=== PATIENT | male | born 1950 | race Caucasian/White ===

== ENCOUNTER 2018-12-18 06:18 | Day surgery (SDC) | payer MEDICARE, OTHER ==
[2018-12-11 10:23] LABS: ABSOLUTE EOSINOPHILS # (AUTO) 0.3 10^3/uL (0.0-0.6); ABSOLUTE LYMPHOCYTES (AUTO) 2.5 10^3/uL (0.5-4.7); ABSOLUTE MONOCYTES (AUTO) 0.6 10^3/uL (0.1-1.4); ABSOLUTE NEUT (AUTO) 3.6 10^3/uL (1.7-8.2); BASOPHILS % (AUTO) 0.6 % (0-2); HEMATOCRIT 34.6 % (37.9-51.0); HEMOGLOBIN 11.8 g/dL (13.5-17.0); LYMPHOCYTES % (AUTO) 35.4 % (13-45); MEAN CORPUSCULAR HEMOGLOBIN 32.8 pg (27.0-33.4); MEAN CORPUSCULAR HGB CONC 34.1 g/dL (32.0-36.0); MEAN CORPUSCULAR VOLUME 96 fl (80-97); MONOCYTES % (AUTO) 8.4 % (3-13); PLATELET COUNT 115 10^3/uL (150-450); RED CELL DISTRIBUTION WIDTH 15.7 % (11.5-14.0); SEGMENTED NEUTROPHILS % (AUTO) 51.6 % (42-78); TOTAL CELLS COUNTED % (AUTO) 100 %
[2018-12-11 10:44] LABS: ANION GAP 6 (5-19); BLOOD UREA NITROGEN 15 mg/dL (7-20); CALCIUM 9.3 mg/dL (8.4-10.2); CARBON DIOXIDE 26 mmol/L (22-30); CHLORIDE 107 mmol/L (98-107); POTASSIUM 4.1 mmol/L (3.6-5.0)
[2018-12-11 10:45] LABS: GLUCOSE 130 mg/dL (75-110)
--- NOTE | 2018-12-11 12:24 | EKG REPORT ---
SEVERITY:- NORMAL ECG - SINUS RHYTHM : Confirmed by: Bekah Abraham MD 11-Dec-2018 12:23:13
[~2018-12-18 06:18] MED LIST: CEFAZOLIN SODIUM 2 GM in DEXTROSE 5%-WATER 100 ML IV PRN; LACTATED RINGERS 1000 ML IV PRN; LIDOCAINE 0.5% INJ-PF (5 MG/ML) 50 ML SDV SUBCUT PRN
[2018-12-18 07:07] LABS: INTERNATIONAL RATION (INR) 1.25; PARTIAL THROMBOPLASTIN TIME 34.8 SEC (23.5-35.8); PROTHROMBIN TIME 15.8 SEC (11.4-15.4)
[2018-12-18] MEDS ORDERED: BUPIVACAINE HCL 0.5 % INJ/PF 30 ML SDV ONE (07:52)
[2018-12-18] MEDS ORDERED: PROPOFOL INJ 200 MG/20 ML VIAL IV ONE (08:22)
[2018-12-18] MEDS ORDERED: FENTANYL CITRATE INJ/PF 100 MCG/2 ML AMPUL ONE (08:22)
[2018-12-18] MEDS ORDERED: MIDAZOLAM 2 MG/2 ML INJ ONE (08:22)
[2018-12-18] MEDS ORDERED: LIDOCAINE 2% INJ (20 MG/ML) 20 ML MDV ONE (08:23)
[2018-12-18] MEDS ORDERED: BUPIVACAINE HCL 0.5%-EPI 1:200000 INJ/PF 30 ML VIAL ONE (08:31)
[2018-12-18] MEDS ORDERED: POVIDONE-IODINE 5% OPH PREP SOLN 30 ML ONE (08:42)
[2018-12-18] MEDS ORDERED: BUPIVACAINE HCL 0.5%/EPI 1:200000 INJ 1.8 ML CARTRIDGE ONE (08:46)
[2018-12-18] MEDS ORDERED: OXYCODONE-ACETAMINOPHEN 5-325 MG TABLET PO PRN ×2 (09:20)
[2018-12-18] MEDS ORDERED: MEPERIDINE HCL/PF INJ 25 MG/1 ML DISP.SYRIN IV PRN (09:20)
[2018-12-18] MEDS ORDERED: DIPHENHYDRAMINE HCL 50 MG/ML VIAL IV PRN (09:20)
[2018-12-18] MEDS ORDERED: FENTANYL CITRATE INJ/PF 100 MCG/2 ML AMPUL IV PRN ×3 (09:20)
[2018-12-18] MEDS ORDERED: PROMETHAZINE HCL INJ 25 MG/1 ML VIAL IV PRN ×2 (09:20)
[2018-12-18] MEDS ORDERED: MINERAL OIL (STERILE) 10 ML VIAL ONE (09:34)
[2018-12-18] MEDS ORDERED: MINERAL OIL 30 ML UDCUP TOP ONE (09:35)
[2018-12-18] MEDS ORDERED: MINERAL OIL (STERILE) 10 ML VIAL TOP ONE (09:35)
[2018-12-18] MEDS ORDERED: HYDROCODONE/ACETAMINOPHEN 5-325 MG TABLET ONE (10:52)
[2018-12-18] MEDS ORDERED: HYDROCODONE/ACETAMINOPHEN 5-325 MG TABLET PO PRN (11:25)
[2018-12-18] MEDS ORDERED: ONDANSETRON HCL INJ/PF 4 MG/2 ML SDV IV PRN (11:25)
[2018-12-18 13:00] VITALS: BP 110/68
--- NOTE | 2018-12-18 16:08 | Operative Report ---
Operative Report-[facility] Operative Report: Date of procedure: December 18, 2018 Preoperative diagnoses: 1. Left temporal hemangioma Postoperative diagnoses: 1. Left temporal hemangioma Operation performed: 1. Complex excision of left temporal hemangioma Primary Surgeon of Record: Dr. Frank Vora Anesthetic: MAC/monitored anesthesia care Anesthesia provider: RASHAUN Bass ([facility]) Estimated blood loss: 3 mL Fluids: Complications: None Drains: None Sponge Count: Verified Needle Count: Verified Materials forwarded as specimen: 1. Left temporal hemangioma, approximately 1.5 x 1.5 cm, and surrounding skin and subcutaneous tissue Findings: 1. Left temporal hemangioma, approximately 1.5 x 1.5 cm, and there were prominent vessels surrounding the hemangioma noted in the subcutaneous tissues. Indications: This is a 68-year-old white male patient who has been seen and evaluated [facility]. The patient has been with in enlarging left temporal area hemangioma over the years which he has wanted to get removed as it occasionally bleeds and he has pain/discomfort in this area and desires for it to be removed before it becomes any larger and requires a more extensive surgery. The patient is also followed by cardiology and takes Plavix and Eliquis. He was cleared to hold his Eliquis for 2 days prior to and for 2 days after his surgery. The risk and complications of the procedure were all discussed in detail with the patient. The patient voiced an understanding of the procedure/surgery and all of the risks and complications, desire to proceed, and consent was obtained. Procedure: The patient was taken to the main operating room and placed on the operating room table in the supine position. Appropriate monitors were placed. Using mask and IV and mask access monitored anesthesia care/MAC was established. The patient then had a planned excision site marked with a surgical marking pen which was next infiltrated with Lidocaine and Marcaine with epinephrine to establish a local area block. The patient was then prepped and draped in sterile fashion. The skin was sharply incised and an elliptical fashion with dissection carried out throughout the subcutaneous tissues. Prominent vessels were addressed with bipolar electrocautery. The specimen was removed and passed off for permanent pathology evaluation. Bipolar electrocautery was used throughout the wound bed and skin margins to provide adequate hemostasis. Once complete the site was closed in a layered fashion using Monocryl suture. Next, the skin was cleaned and dried followed by placement of Mastisol, Steri-Strips, and a fluffs pressure dressing. The patient was then returned to the anesthesia staff and was allowed to emerge from general anesthesia. The patient was extubated in the main operating room and was then transported to the post- anesthesia recovery unit in stable condition. There were no complications.
== END 2018-12-18 11:55 | disposition home or self-care (01) ==
LOC: OROUT 06:18
PROVIDERS: ATTEND Otolaryngology
DX: D18.01 Hemangioma of skin and subcutaneous tissue (principal); Z79.01 Long term (current) use of anticoagulants; H61.23 Impacted cerumen, bilateral; Z92.89 Personal history of other medical treatment; Z86.69 Personal history of other diseases of the nervous system and sense organs; I11.0 Hypertensive heart disease with heart failure; I50.9 Heart failure, unspecified; I25.10 Atherosclerotic heart disease of native coronary artery without angina pectoris; E07.9 Disorder of thyroid, unspecified; E66.9 Obesity, unspecified; Z68.30 Body mass index [BMI] 30.0-30.9, adult; Z79.899 Other long term (current) drug therapy; I25.2 Old myocardial infarction
CPT/HCPCS: 93005; 86900; 86901; 36415 ×2; 86850; 84132; 85025; 85610; 85730; 80048; 88305 ×2; 93010; 00300; 21012; J2250; J3490 ×5; J0690; J3010; J7060; J2704; A9270; 300